=== PATIENT | female | born 1985 | race Caucasian/White ===

== ENCOUNTER 2018-01-18 06:16 | Observation (INO) | payer OTHER ==
[~2018-01-18] VITALS: Ht 160 cm; Wt 64.5 kg
[2018-01-18] MEDS ORDERED: LACTATED RINGERS 1,000 ML IV SCH (06:27)
[2018-01-18] MEDS ORDERED: TERBUTALINE 1 MG/ML, 1ML SQ ONE (06:30)
[2018-01-18 07:00] VITALS: BP 108/67
[2018-01-18] MEDS ORDERED: TERBUTALINE 1 MG/ML, 1ML ONE (07:18)
[2018-01-18] MEDS ORDERED: PREN1TAB60 PO (07:59)
== END 2018-01-18 08:23 | disposition home or self-care (01) ==
LOC: LDIP 06:16
PROVIDERS: ADMIT Obstetrics & Gynecology; ATTEND Obstetrics & Gynecology
DX: O26.893 Other specified pregnancy related conditions, third trimester (principal); Z3A.37 37 weeks gestation of pregnancy
CPT/HCPCS: 59025; 59412; 76815; 96360; 96372; G0378; J3105; J7120; 96361

== ENCOUNTER 2018-01-29 09:03 | Inpatient (IN) | payer OTHER ==
[~2018-01-29] VITALS: Ht 160 cm; Wt 63.6 kg
[~2018-01-29 09:03] MED LIST: PREN1TAB60 PO
[2018-01-29 09:15] VITALS: BP 109/77
[2018-01-29] MEDS ORDERED: LACTATED RINGERS 1,000 ML IV SCH ×4 (09:17→11:35)
[2018-01-29] MEDS ORDERED: OXYTOCIN 30U/ 0.9% NaCL 500ML 500 ML IV SCH ×2 (09:17→11:35)
[2018-01-29] MEDS ORDERED: SODIUM CITRATE/CITRIC ACID 30 ML UDC PO ONE (09:30)
[2018-01-29] MEDS ORDERED: METOCLOPRAMIDE 5 MG/ML, 2ML IV ONE (09:30)
[2018-01-29] MEDS ORDERED: LACTATED RINGERS 1,000 ML IVBOLUS ONE (09:30)
[2018-01-29 09:40] LABS: BASOPHILS # (AUTO) 0.08 x10^3/uL (0-0.1); BASOPHILS % (AUTO) 1 % (0-1); EOSINOPHILS # (AUTO) 0.05 x10^3/uL (0-0.4); EOSINOPHILS % (AUTO) 1 % (1-7); LYMPHOCYTES # (AUTO) 1.33 x10^3/uL (1-3.4); LYMPHOCYTES % (AUTO) 11 % (22-44); MD NO; MEAN CORPUSCULAR HEMOGLOBIN 30.5 pg (27.0-34.8); MEAN CORPUSCULAR HGB CONC 33.2 g/dL (32.4-35.8); MEAN CORPUSCULAR VOLUME 91.7 fL (80-100); MEAN PLATELET VOLUME 7.6 fL (7.4-10.4); MONOCYTES # (AUTO) 0.57 x10^3/uL (0.2-0.8); MONOCYTES % (AUTO) 5 % (2-9); NEUTROPHILS # (AUTO) 9.93 x10^3/uL (1.8-6.8); NEUTROPHILS % (AUTO) 83 % (42-75); PLATELET COUNT 232 x10^3/uL (130-400); RED BLOOD COUNT 4.53 x10^6/uL (3.82-5.3); RED CELL DISTRIBUTION WIDTH 12.7 % (9.6-15.2)
[2018-01-29] MEDS ORDERED: OXYTOCIN 30U/ 0.9% NaCL 500ML 500 ML ONE (09:44)
[2018-01-29] MEDS ORDERED: NEWBORN KIT ONE (09:44)
[2018-01-29] MEDS ORDERED: METOCLOPRAMIDE 5 MG/ML, 2ML ONE (09:44)
[2018-01-29] MEDS ORDERED: SODIUM CITRATE/CITRIC ACID 30 ML UDC ONE (09:44)
[2018-01-29] MEDS ORDERED: ONDANSETRON ODT 4 MG ONE (10:33)
[2018-01-29] MEDS ORDERED: DEXAMETHASONE 4 MG/ML, 1ML ONE (10:33)
[2018-01-29] MEDS ORDERED: CEFAZOLIN 1,000 MG ONE (10:33)
[2018-01-29 14:57] VITALS: BP 122/77
[2018-01-29] MEDS: OXYTOCIN 30U/ 0.9% NaCL 500ML 500 ML IV SCH ×2 (16:38→21:35)
[2018-01-29] MEDS: LACTATED RINGERS 1,000 ML IV SCH ×4 (16:38→21:35)
[2018-01-29] MEDS: KETOROLAC 30 MG/1 ML IVPush SCH ×2 (17:25→23:11)
[2018-01-29] MEDS ORDERED: EPHEDRINE 50 MG/ML, 1ML IVPush PRN (17:30)
[2018-01-29] MEDS ORDERED: OXYcodone/APAP 5/325MG TABLET PO PRN (17:30)
[2018-01-29] MEDS ORDERED: DIPHENHYDRAMINE 50 MG/ML, 1ML IV PRN (17:30)
[2018-01-29] MEDS ORDERED: MORPHINE SULFATE 4 MG/ML, 1ML IV PRN ×2 (17:30)
[2018-01-29] MEDS ORDERED: NALOXONE 0.4 MG/ML, 1ML IV PRN (17:30)
[2018-01-29] MEDS ORDERED: NO SEDATIVES, TRANQUILIZERS OR ANTIEMETICS XX SCH (17:30)
[2018-01-29] MEDS ORDERED: ONDANSETRON 2MG/ML, 2ML IVPush PRN (17:30)
[2018-01-29 19:35] VITALS: BP 107/65
[2018-01-29 19:37] LABS: MEAN CORPUSCULAR HEMOGLOBIN 31.6 pg (27.0-34.8); MEAN CORPUSCULAR HGB CONC 34.2 g/dL (32.4-35.8); MEAN CORPUSCULAR VOLUME 92.2 fL (80-100); MEAN PLATELET VOLUME 7.8 fL (7.4-10.4); PLATELET COUNT 237 x10^3/uL (130-400); RED CELL DISTRIBUTION WIDTH 13.1 % (9.6-15.2)
[2018-01-29 19:50] LABS: BASOPHILS # (AUTO) 0.08 x10^3/uL (0-0.1); BASOPHILS % (AUTO) 0 % (0-1); EOSINOPHILS % (AUTO) 0 % (1-7); LYMPHOCYTES # (AUTO) 0.98 x10^3/uL (1-3.4); LYMPHOCYTES % (AUTO) 5 % (22-44); MD SCAN; MONOCYTES # (AUTO) 0.91 x10^3/uL (0.2-0.8); MONOCYTES % (AUTO) 5 % (2-9); NEUTROPHILS # (AUTO) 16.36 x10^3/uL (1.8-6.8); NEUTROPHILS % (AUTO) 89 % (42-75)
[2018-01-29 23:15] VITALS: BP 105/62
[2018-01-30] MEDS: LACTATED RINGERS 1,000 ML IV SCH (03:35)
[2018-01-30 04:45] VITALS: BP 93/55
[2018-01-30] MEDS: KETOROLAC 30 MG/1 ML IVPush SCH (04:45)
[2018-01-30 07:30] VITALS: BP 99/63
[2018-01-30] MEDS ORDERED: PRENATAL VIT/IRON/FA 1 EACH TABLET PO SCH (09:00)
[2018-01-30] MEDS ORDERED: DOCUSATE 100 MG CAPSULE ONE (09:45)
[2018-01-30] MEDS: PRENATAL VIT/IRON/FA 1 EACH TABLET PO SCH (09:49)
[2018-01-30] MEDS ORDERED: SIMETHICONE 80 MG CHEW TAB PO PRN (11:30)
[2018-01-30] MEDS ORDERED: KETOROLAC 30 MG/1 ML IVPush ONE (11:30)
[2018-01-30] MEDS ORDERED: METHYLERGONOVINE 0.2 MG/ML IM PRN (11:30)
[2018-01-30] MEDS ORDERED: ONDANSETRON 2MG/ML, 2ML IV PRN (11:30)
[2018-01-30] MEDS ORDERED: MISOPROSTOL 200 MCG TABLET PO PRN (11:30)
[2018-01-30] MEDS ORDERED: OXYcodone/APAP 5/325MG TABLET PO PRN ×2 (11:30)
[2018-01-30] MEDS: DOCUSATE 100 MG CAPSULE PO PRN ×2 (11:33→21:51)
[2018-01-30] MEDS: IBUPROFEN 600 MG TABLET PO PRN ×2 (15:59→21:51)
[2018-01-30 19:40] VITALS: BP 99/63
[2018-01-31] MEDS: IBUPROFEN 600 MG TABLET PO PRN ×2 (04:11→10:17)
[2018-01-31 08:08] VITALS: BP 109/72
[2018-01-31] MEDS: DOCUSATE 100 MG CAPSULE PO PRN (08:58)
[2018-01-31] MEDS: PRENATAL VIT/IRON/FA 1 EACH TABLET PO SCH (09:00)
[2018-01-31] MEDS ORDERED: IBUP-1222 PO (12:52)
[2018-01-31] MEDS ORDERED: OXYC-302 PO (12:52)
== END 2018-01-31 14:45 | disposition home or self-care (01) | DRG 766 ==
LOC: LDOP 09:03 → LDIP 09:20 → 2NW 13:38
PROVIDERS: ADMIT Pediatrics Adolescent Medicine; ATTEND Obstetrics & Gynecology
PROC: 10D00Z1 Extraction of Products of Conception, Low, Open Approach (ICD-10-PCS; principal; 2018-01-29)
DX: O32.1XX0 Maternal care for breech presentation, not applicable or unspecified (principal); O69.81X0 Labor and delivery complicated by cord around neck, without compression, not applicable or unspecified; O69.89X0 Labor and delivery complicated by other cord complications, not applicable or unspecified; O77.0 Labor and delivery complicated by meconium in amniotic fluid; Z37.0 Single live birth; Z3A.39 39 weeks gestation of pregnancy
CPT/HCPCS: 36415; 85025; 86850; 86900; J0690; J1100; J1885; J2274; J2405; Q0162; J2590; J2765; J7120

== ENCOUNTER → 2021-05-04 | Outpatient (CLI) | payer OTHER ==
[~2021-05-04] MED LIST changes: +IBUP-1222 PO; +OXYC1TAB14 PO
== END | disposition home or self-care (01) ==
LOC: CFH 12:39
PROVIDERS: ATTEND Obstetrics & Gynecology
DX: N63.11 Unspecified lump in the right breast, upper outer quadrant (principal)
CPT/HCPCS: 76642

== ENCOUNTER 2021-05-10 12:31 | Inpatient (IN) | payer OTHER ==
[~2021-05-10] VITALS: Ht 160 cm; Wt 63.6 kg
[~2021-05-10 12:31] MED LIST changes: +OXYC1TAB12 PO; -OXYC1TAB14 PO
[2021-05-11] MEDS ORDERED: ONDANSETRON 2MG/ML, 2ML IVPush PRN (08:00)
[2021-05-11] MEDS ORDERED: FENTANYL PF 100 MCG/2ML IVPush PRN (08:00)
[2021-05-11] MEDS ORDERED: OXYTOCIN 30U/ 0.9% NaCL 500ML 500 ML IV ONE (08:00)
[2021-05-11] MEDS ORDERED: TERBUTALINE 1 MG/ML, 1ML IVPush PRN (08:00)
[2021-05-11] MEDS ORDERED: FENTANYL PF 100 MCG/2ML IV PRN (08:00)
[2021-05-11] MEDS ORDERED: OXYTOCIN 30U/ 0.9% NaCL 500ML 500 ML IV PRN (08:00)
[2021-05-11] MEDS ORDERED: TERBUTALINE 1 MG/ML, 1ML SQ PRN (08:00)
[2021-05-11] MEDS ORDERED: OXYTOCIN 30U/ 0.9% NaCL 500ML 500 ML ONE (08:12)
[2021-05-11] MEDS ORDERED: MISOPROSTOL 200 MCG TABLET ONE (08:12)
[2021-05-11] MEDS ORDERED: NEWBORN KIT ONE (08:12)
[2021-05-11] MEDS ORDERED: LIDOCAINE 1%, 20ML ONE (08:12)
[2021-05-11] MEDS ORDERED: PLEASE ENTER HEIGHT AND WEIGHT MC SCH (08:30)
[2021-05-11 08:36] LABS: BASOPHILS % (AUTO) 0 % (0-1); EOSINOPHILS % (AUTO) 2 % (1-7); LYMPHOCYTES % (AUTO) 16 % (22-44); MEAN CORPUSCULAR HEMOGLOBIN 28.7 pg (27.0-34.8); MEAN CORPUSCULAR HGB CONC 33.4 g/dL (32.4-35.8); MEAN PLATELET VOLUME 7.8 fL (7.4-10.4); MONOCYTES % (AUTO) 8 % (2-9); NEUTROPHILS % (AUTO) 74 % (42-75); PLATELET COUNT 222 x10^3/uL (130-400); RED BLOOD COUNT 4.45 x10^6/uL (3.82-5.3); RED CELL DISTRIBUTION WIDTH 13.6 % (9.6-15.2)
[2021-05-11] MEDS: LACTATED RINGERS 1,000 ML IV SCH ×2 (08:54→17:00)
[2021-05-11] MEDS: D5%-LACTATED RINGERS 1,000 ML IV SCH ×2 (09:00→17:00)
[2021-05-11 09:58] VITALS: BP 110/71
[2021-05-11] MEDS ORDERED: BUPIVACAINE 0.25% ONE (11:48)
[2021-05-11] MEDS ORDERED: FENTANYL/BUPIV./NS/PF 250 ML EPIDCONT ONE (11:48)
[2021-05-11] MEDS ORDERED: LIDOCAINE/PF 1.5% EPI 1:200K, 10 ML ONE (11:48)
[2021-05-11] MEDS ORDERED: LACTATED RINGERS 1,000 ML IV SCH (12:00)
[2021-05-11] MEDS ORDERED: LACTATED RINGERS 1,000 ML IVBOLUS PRN (12:00)
[2021-05-11] MEDS ORDERED: NALOXONE 0.4 MG/ML, 1ML IVPush PRN (12:00)
[2021-05-11] MEDS ORDERED: FENTANYL/BUPIV./NS/PF 250 ML EPIDCONT SCH (12:00)
[2021-05-11] MEDS ORDERED: EPHEDRINE 50 MG/ML, 1ML IVPush PRN (12:00)
[2021-05-11] MEDS ORDERED: MISOPROSTOL 200 MCG TABLET PR PRN (18:00)
[2021-05-11] MEDS ORDERED: RHOGAM FROM BLOOD BANK 1 NOTE EA IM/IV ONE (18:00)
[2021-05-11] MEDS ORDERED: CALCIUM CARBONATE 500 MG TAB.CHEW PO PRN (18:00)
[2021-05-11] MEDS ORDERED: DOCUSATE 100 MG CAPSULE PO PRN (18:00)
[2021-05-11] MEDS ORDERED: OXYcodone/APAP 5/325MG TABLET PO PRN ×2 (18:00)
[2021-05-11] MEDS ORDERED: ONDANSETRON 2MG/ML, 2ML IV PRN (18:00)
[2021-05-11] MEDS ORDERED: ACETAMINOPHEN 325 MG TABLET PO PRN ×2 (18:00)
[2021-05-11] MEDS ORDERED: SIMETHICONE 80 MG CHEW TAB PO PRN (18:00)
[2021-05-11] MEDS ORDERED: DIPH,PERTUSS(ACELL),TET VAC/PF NC IM-VACC PRN (18:00)
[2021-05-11] MEDS ORDERED: MAGNESIUM HYDROXIDE 8%, 30ML UDC PO PRN (18:00)
[2021-05-11] MEDS: IBUPROFEN 600 MG TABLET PO PRN (18:07)
[2021-05-11] MEDS: OXYTOCIN 30U/ 0.9% NaCL 500ML 500 ML IV SCH (18:32)
[2021-05-11 20:45] VITALS: BP 102/62
[2021-05-12] MEDS: IBUPROFEN 600 MG TABLET PO PRN ×3 (00:43→12:42)
[2021-05-12 00:45] VITALS: BP 101/64
[2021-05-12] MEDS: LACTATED RINGERS 1,000 ML IV SCH (01:18)
[2021-05-12] MEDS: D5%-LACTATED RINGERS 1,000 ML IV SCH (01:18)
[2021-05-12 01:26] LABS: BASOPHILS % (AUTO) 0 % (0-1); EOSINOPHILS % (AUTO) 1 % (1-7); LYMPHOCYTES % (AUTO) 11 % (22-44); MEAN CORPUSCULAR HGB CONC 33.6 g/dL (32.4-35.8); MEAN PLATELET VOLUME 7.9 fL (7.4-10.4); MONOCYTES % (AUTO) 6 % (2-9); NEUTROPHILS % (AUTO) 82 % (42-75); PLATELET COUNT 186 x10^3/uL (130-400); RED BLOOD COUNT 3.87 x10^6/uL (3.82-5.3); RED CELL DISTRIBUTION WIDTH 13.5 % (9.6-15.2)
[2021-05-12] MEDS: OXYTOCIN 30U/ 0.9% NaCL 500ML 500 ML IV SCH (04:06)
[2021-05-12 04:43] VITALS: BP 112/76
[2021-05-12 08:38] VITALS: BP 99/64
[2021-05-12] MEDS ORDERED: PRENATAL VIT/IRON/FA 1 EACH TABLET PO SCH (09:00)
[2021-05-12 12:53] VITALS: BP 110/74
== END 2021-05-12 17:20 | disposition home or self-care (01) | DRG 807 ==
LOC: LDIP 05-11 07:32 → 2NW 05-11 19:45
PROVIDERS: ADMIT Obstetrics & Gynecology; ATTEND Obstetrics & Gynecology
PROC: 10E0XZZ Delivery of Products of Conception, External Approach (ICD-10-PCS; principal; 2021-05-11)
PROC: 0KQM0ZZ Repair Perineum Muscle, Open Approach (ICD-10-PCS; 2021-05-11)
PROC: 10907ZC Drainage of Amniotic Fluid, Therapeutic from Products of Conception, Via Natural or Artificial Opening (ICD-10-PCS; 2021-05-11)
PROC: 3E0R3BZ Introduction of Anesthetic Agent into Spinal Canal, Percutaneous Approach (ICD-10-PCS; 2021-05-11)
PROC: 00HU33Z Insertion of Infusion Device into Spinal Canal, Percutaneous Approach (ICD-10-PCS; 2021-05-11)
DX: O34.211 Maternal care for low transverse scar from previous cesarean delivery (principal); Z37.0 Single live birth; Z3A.40 40 weeks gestation of pregnancy; Z20.822 Contact with and (suspected) exposure to COVID-19; O70.1 Second degree perineal laceration during delivery
CPT/HCPCS: 36415; 85025; 86592; 86850; 86900; 87635; G0378; J2590; J3010; J7120